=== PATIENT | female | born 1975 | race Caucasian/White ===

== ENCOUNTER 2020-02-17 08:12 | Outpatient (REF) | payer MEDICARE, MEDICAID, SELFPAY | END 2020-02-17 08:13 | disposition home or self-care (01) | LOC: HO.LAB 08:12 | PROVIDERS: Visit Provider Internal Medicine | DX: Z20.828 Contact with and (suspected) exposure to other viral communicable diseases (principal) | CPT/HCPCS: C9803; U0003 ==

== ENCOUNTER 2022-08-09 11:57 | Emergency (ER) | payer MEDICARE, MEDICAID, SELFPAY ==
--- NOTE | ~2022-08-09 | XR_ITS ---
EXAMINATION: XR CHEST CLINICAL INFORMATION: Shortness of breath COMPARISON: None available. TECHNIQUE: 2 views of the chest were obtained. FINDINGS: No significant abnormality is noted involving the heart, lungs, mediastinum, bony thorax or soft tissues. XR/XR chest 2V IMPRESSION: Unremarkable examination.
[2022-08-09 12:00] VITALS: BP 179/91; PULSE 103; RESP 20; TEMP 37; O2SAT 99; BMI 27.4
--- NOTE | 2022-08-09 12:01 | ED_ITS ---
HPI - General Adult General Chief complaint: Upper Respiratory Symptoms Stated complaint: SOB/Blocked ears/FO in R eye Time Seen by Provider: 08/09/22 13:39 History of Present Illness HPI narrative: Patient complains of runny nose and congestion as well as red eyes which are itching and discharge in watery fluid for several weeks, she is also concerned she might have a foreign body in the right eye, no other eye pain or vision loss She has no chest pain no shortness of breath no headache no sore throat no difficulty swallowing or breathing, no abdominal pain no nausea vomiting or diarrhea no dysuria Related Data Previous Rx's Medication Instructions Recorded cetirizine 10 mg tablet 10 mg PO DAILY PRN allergy 08/09/22 symptoms #30 tabs fluticasone propionate 50 2 spray intranasal DAILY #16 grams 08/09/22 mcg/actuation nasal spray,suspension (24 Hour Allergy Relief) olopatadine 0.7 % eye drops 1 drp ophthalmic (eye) DAILY PRN 08/09/22 (Pataday Once Daily Relief) itching #5 mL prednisone 20 mg tablet 60 mg PO DAILY 5 days #15 tabs 08/09/22 Allergies Allergy/AdvReac Type Severity Reaction Status Date / Time No Known Allergies Allergy Unverified 11/27/19 18:57 [No Known Allergies*] FORMERLY [facility], [facility] Past Medical History Source: nursing notes reviewed Social History Social History Advance Directives: No Advance Directives Information Provided: No Physical Exam ED Vital Signs: Vital Signs - 24 hr 08/09/22 12:00 Temperature 98.6 F Pulse Rate 103 H Respiratory Rate 20 Blood Pressure 179/91 H Pulse Oximetry 99 Oxygen Delivery Method Room Air BMI result Body Mass Index 27.4 General appearance no acute distress no respiratory distress The eyes both eyes have mildly injected conjunctiva there is no obvious discharge, pupils equal round reactive to light extraocular motions are intact Staining of the right eye with fluorescein did not show any abrasion, no foreign body was seen, visual acuity was 20 30 bilaterally Sinuses were nontender The pharynx is clear without redness swelling or exudate The lungs are clear with full symmetric equal breath sounds Heart no murmur Extremities for range of motion x4 Skin no rash Course Course Course Narrative: This is an RME: Additional HPI, ROS, PE not included below will be deferred to primary provider. 47 y/o F presenting with bilateral ear blockage, cough, congestion, shortness of breath and ?foreign body in right eye. She states that she found a body in an apartment complex 1 month ago concerned she picked something up. VSS. Pt stable to return back to waiting room until treatment room becomes available. Plan: Viral swabs, CXR ordered No evidence of foreign body or abrasion on staining of the right eye, red eyes with watery discharge is likely to be an allergic conjunctivitis, nasal symptoms are likely allergic, no sign of acute sinusitis or asthma and patient is discharged with medication for allergy Medications Administered Discontinued Medications Generic Name Dose Route Start Last Admin Trade Name Freq PRN Reason Stop Dose Admin Fluorescein Sodium 1 strip 08/09/22 13:59 08/09/22 14:17 Fluorescein Sodium Strip EYE-BOTH 08/09/22 14:00 1 strip ONCE ONE Administration Tetracaine HCl 3 drop 08/09/22 13:59 08/09/22 14:17 Tetracaine Hcl/Pf 0.5% Oph Michelle 4 Ml Drops EYE-RIGHT 08/09/22 14:00 3 drop ONCE ONE Administration Medical Decision Making Lab Data Labs: Lab Results 08/09/22 Range/Units 12:12 Influenza Type A (PCR) NEGATIVE (Negative) Influenza Type B (PCR) NEGATIVE (Negative) RSV RNA Qual (PCR) NEGATIVE (Negative) SARS-CoV-2 RNA (RT-PCR) NEGATIVE (Negative) Discharge Plan Discharge Clinical Impression: Allergies Patient Disposition: Home, Self-Care Additional Instructions: I did not see any foreign body in the eye This is likely all irritation from allergy but to be sure it is a good idea to follow with an eye doctor who can do a magnified exam and be sure there is nothing else going on I wrote for medications for allergies including nose spray pills and eyedrops Follow with your doctor Return any time any worse condition or concerns Prescriptions: New Pataday Once Daily Relief 0.7 % drops 1 drp ophthalmic (eye) DAILY PRN (Reason: itching) Qty: 5 0RF cetirizine 10 mg tablet 10 mg PO DAILY PRN (Reason: allergy symptoms) Qty: 30 0RF prednisone 20 mg tablet 60 mg PO DAILY 5 Days Qty: 15 0RF fluticasone propionate [24 Hour Allergy Relief] 50 mcg/actuation spray,suspension 2 spray intranasal DAILY Qty: 16 0RF Rx Instructions: administer into each nostril Referrals: Teofilo Bermudez [Physician] - Interventions: ED Discharge Assessment Last Done: 08/09/22 14:45 Discharge Date/Time: 08/09/22 14:45
[2022-08-09 13:03] LABS: Influenza A PCR NEGATIVE (Negative); Influenza B PCR NEGATIVE (Negative); Resp Syncy Virus RNA Qual PCR NEGATIVE (Negative); SARS COV2 PCR INHOUSE NEGATIVE (Negative)
[2022-08-09] MEDS: Fluorescein Sodium STRIP 1 STRIP EYE-BOTH (14:17)
[2022-08-09] MEDS: Tetracaine HCl/PF 0.5% Oph Sol 4 ML DROPS 3 DROP EYE-RIGHT (14:17)
== END 2022-08-09 14:45 | disposition home or self-care (01) ==
PROVIDERS: Physician Assistant Medical; Emergency Provider Emergency Medicine
DX: T78.40XA Allergy, unspecified, initial encounter (principal); R06.02 Shortness of breath; X58.XXXA Exposure to other specified factors, initial encounter; Z20.822 Contact with and (suspected) exposure to COVID-19; Z20.828 Contact with and (suspected) exposure to other viral communicable diseases
CPT/HCPCS: 0241U; 71046; 99282; 99283

== ENCOUNTER 2022-08-25 11:50 | Emergency (ER) | payer MEDICARE, MEDICAID, SELFPAY ==
[2022-08-25 12:16] VITALS: BP 143/117; PULSE 106; RESP 20; TEMP 36.6; O2SAT 97; BMI 26.6
--- NOTE | 2022-08-25 12:16 | ED_ITS ---
HPI - URI/Sore Throat General Chief Complaint: General Medical Stated Complaint: coughing blood, swollen ankles, headache Time Seen by Provider: 08/25/22 12:25 Source: patient Mode of arrival: ambulatory Limitations: no limitations History of Present Illness HPI Narrative: Patient is a 47 year old assigned female at with no reported medical history presenting to the emergency department today with after an episode of bloody vomiting and concerns of having a parasitic infection. Patient states that she has been having nausea, vomiting, and congestion the last few months and today she vomited and noticed it was blood tinged. Patient states that there has also been recent concern of parasites living in her apartment after a close by apartment that was infested was emptied out. Patient denies any dizziness, lightheadedness, abdominal pain, fever, chills, blurry vision, double vision, loss of vision, chest pain, difficulty breathing, shortness of breath, back pain, night sweats, pain with urination, increased urinary frequency, increased urinary urgency, blood in her urine or stool, syncope or a near syncopal episode, recent trauma or falls, bowel incontinence, bladder incontinence, bowel retention, bladder retention, or any other complaints at this time. Able to tolerate fluids by mouth: Yes Exacerbating factors: nothing Relieving factors: nothing Associated symptoms: nasal congestion, nausea and vomiting Treatments prior to arrival: none Related Data Previous Rx's Medication Instructions Recorded cetirizine 10 mg tablet 10 mg PO DAILY PRN allergy 08/09/22 symptoms #30 tabs fluticasone propionate 50 2 spray intranasal DAILY #16 grams 08/09/22 mcg/actuation nasal spray,suspension (24 Hour Allergy Relief) olopatadine 0.7 % eye drops 1 drp ophthalmic (eye) DAILY PRN 08/09/22 (Pataday Once Daily Relief) itching #5 mL prednisone 20 mg tablet 60 mg PO DAILY 5 days #15 tabs 08/09/22 doxycycline hyclate 100 mg tablet 100 mg PO BID 7 days #14 tabs 08/25/22 ondansetron 4 mg disintegrating 4 mg PO Q8H 3 days #9 tabs 08/25/22 tablet praziquantel 600 mg tablet 1,800 mg PO ONCE 1 day #3 tabs 08/25/22 Allergies Allergy/AdvReac Type Severity Reaction Status Date / Time No Known Allergies Allergy Unverified 11/27/19 18:57 [No Known Allergies*] Review of Systems Constitutional: Constitutional: Reports no additional constitutional compl aints, Denies chills, Denies fever(s) and Denies night sweats Eyes: Eyes: Reports no additional eye complaints, Denies blurry vision, Denies change in vision, Denies diplopia, Denies eye discharge, Denies loss of vision and Denies eye pain ENT: Denies dizziness and Reports nasal congestion Cardiovascular: Cardiovascular: Reports no additional cardiovascular co mplaints, Denies chest pain, Denies lightheadedness, Denies Loss of Consciousness and Denies dyspnea Respiratory: Respiratory: Reports no additional respiratory complaints and Denies dyspnea Gastrointestinal: Gastrointestinal: Reports no additional gastrointestinal complaints, Denies abdominal pain, Denies melena, Denies hematochezia, Denies change in bowel habits, Denies change in stool character, Reports nausea and Reports vomiting Genitourinary: Genitourinary: Denies hematuria, Denies urinary frequency, Denies dysuria, Denies urinary incontinence, Denies urinary hesitancy and Denies urinary urgency Musculoskeletal: Musculoskeletal: Reports no additional musculoskeletal com plaints, Denies numbness and Denies tingling Neurologic: Denies dizziness, Denies loss of vision, Denies numbness and Denies tingling Psychiatric: Psychiatric: Reports no additional psychiatric complaints Endocrine: Endocrine: Reports no additional endocrine complaints Hematologic/Lymphatic: Hematologic/Lymphatic: Reports no additional hematologic/lymphatic complaints Allergic/Immunologic: Allergic/Immunologic: Reports no additional allergic/immunologic complaints PMFSH Past Medical History Attestation statement: The following information was validated with the patient. Source: old records reviewed and nursing notes reviewed Social History Social History Advance Directives: No Advance Directives Information Provided: No Physical Exam Vital Signs: Vital Signs: Last Vital Signs Temp 97.8 F 08/25/22 12:16 Pulse 106 H 08/25/22 12:16 Resp 20 08/25/22 12:16 BP 143/117 H 08/25/22 12:16 Pulse Ox 97 08/25/22 12:16 O2 Del Method Room Air 08/25/22 12:16 BMI result Body Mass Index 26.6 Const: General: cooperative, no acute distress, alert and awake Nutritional Appearance: well nourished Orientation/consciousness: patient oriented x3 Limitations: no limitations HEENT: Head: Yes normal to inspection and Yes atraumatic Ears: hearing grossly normal bilaterally and external ears normal General nose exam: Normal external nose present, no nasal discharge noted and no epistaxis Face and sinus: Yes normal facial exam, No abrasion and No laceration Mouth: Normal oral and palatal mucosa present, no drooling and no muffled voice Eyes: General: appearance normal, both eyes and all related structures Periorbital: periorbital findings normal Eyelids: Yes eyelids normal Conjunctivae: conjunctivae normal Pupils: Equal, round and reactive pupils present EOM: EOMs intact bilaterally Neck: Neck: Yes normal visual inspection, Yes full ROM and Yes no lymphadenopathy Chest: Chest palpation & inspection: normal inspection of the chest Resp: Effort & Inspection: normal respiratory effort and able to speak in complete sentences Auscultation: clear to auscultation bilaterally Cardio: Rate: regular rate Rhythm: regular rhythm GI: Inspection: Yes normal to inspection Palpation (GI): Soft to palpation, not firm, nontender, no guarding and not rigid Neuro: General: patient oriented x3 and moves all extremities Cranial nerves: Yes Equal, round and reactive pupils present Cognition (Neuro): normal cognition Motor exam (neuro): 5/5 motor strength present throughout Sensory Exam: Normal double simultaneous stimulation for sensation Coordination: [id number] test normal Extrem: General: Yes normal to inspection, Yes full ROM and Yes capillary refill normal Psych: Appearance: grossly normal Mental Status: mental status grossly normal Affect: normal affect Attitude: cooperative Thought process: Normal thought process present Thought content: Normal thought content present Insight: Good insight present (Psych) Course Course Course Narrative: This is a rapid medical exam. Deferred additional HPI, ROS, PE to primary provider. 47 yo female with no known medical history here with bilateral ankle swelling/burning sensation, coughing up blood, headache, joint pain, shortness of breath x 1 month. Is concerned she has a parasitic infection as her neighbors place of living is infected with cockroaches. Has not seen her PCP. Seen here 2 weeks ago and had CXR. Will check labs VSS Medical Decision Making Medical Decision Making MDM Narrative: Patient is a 47 year old assigned female at with no reported medical history presenting to the emergency department today with multiple complaints as documented in the HPI. Patient's physical exam was unremarkable. Patient's blood work was unremarkable. I explained my physical exam findings as well as all test results to the patient. I answered all questions asked by the patient. I stressed the importance of the patient taking her medication as prescribed. I stressed the importance of the patient following up with her primary care pr ovider. I stressed the importance of the patient returning to the emergency department immediately if her symptoms were to worsen or if she were to develop any dizziness, shortness of breath, difficulty breathing, chest pain, blurry vision, loss of vision, nausea, vomiting, abdominal pain, fever, chills, back pain, or any other complaints. Patient verbalized agreement and understanding with this treatment plan and discharge. Differential Diagnosis Differential Diagnoses: The differential diagnosis associated with the presentation includes sinusitis, nausea, vomiting, parasite Admission/Observation Consideration of admission/observation: Escalation of care including admission/observation considered Patient would have been admitted to the hospital had her work up had any findings where hospital admission was appropriate. Lab Data MDM Lab Attestation statement: I reviewed the patient's lab results. My interpretation of these studies and their corresponding values is that they are grossly normal. 08/25/22 12:55 08/25/22 12:55 Labs: Lab Results 08/25/22 08/25/22 08/25/22 Range/Units 12:55 12:55 12:55 WBC 10.2 (4.8-10.8) X10*3/uL RBC 4.99 (4.20-5.50) X10*6/uL Hgb 15.4 (12.0-16.0) g/dl Hct 44.8 (37.0-47.0) % MCV 89.8 (80.0-98.0) fL MCH 30.9 (27.0-33.0) pg MCHC 34.4 (31.0-35.0) g/dl RDW 13.2 (11.0-16.0) % Plt Count 226 (160-400) X10*3/uL MPV 9.4 (9.4-12.3) fL Immature Gran % (Auto) 0.3 (0.0-0.4) % Neut % (Auto) 69.2 (45-73) % Lymph % (Auto) 20.0 (20-40) % [place] % (Auto) 9.5 (2-11) % Eos % (Auto) 0.6 (0-4) % Baso % (Auto) 0.4 (0-2) % Lymph # (Auto) 2.1 (1.2-4.9) X10*3/uL [place] # (Auto) 1.0 (0.1-1.2) X10*3/uL Eos # (Auto) 0.1 (0.0-0.4) X10*3/uL Baso # (Auto) 0.0 (0.0-0.2) X10*3/uL Abs Immat Gran (auto) 0.03 (0.00-0.03) X10*3/uL Absolute Neuts (auto) 7.1 (2.0-8.3) x10*3/uL Absolute Nucleated RBC 0.000 (0.0-0.012) X10*3/uL Nucleated RBC % (auto) 0.0 (0.0-0.2) /100WBC PT 11.0 (10.0-13.1) SEC INR 1.0 (0.9-1.1) Sodium 139 (135-145) mmol/L Potassium 3.8 (3.3-5.1) mmol/L Chloride 104 (96-108) mmol/L Carbon Dioxide 27 (22-29) mmol/L Anion Gap 12 (12-20) BUN 9 (9-16) mg/dL Creatinine 0.73 (0.5-1.4) mg/dL Estim Creat Clear Calc 107.6 Estimated GFR > 60 Random Glucose 125 H (60-115) mg/dL Calcium 10.2 (8.4-10.2) mg/dL Magnesium 2.0 (1.6-2.6) mg/dL Total Bilirubin 0.5 (0.0-1.0) mg/dL Direct Bilirubin 0.1 (0.0-0.5) mg/dL AST 30 (5-31) U/L ALT 27 (0-31) U/L Alkaline Phosphatase 70 (39-117) U/L Total Creatine Kinase 181 H (26-140) U/L B-Natriuretic Peptide (<100) pg/mL Total Protein 7.4 (6.5-8.0) g/dL Albumin 4.1 (3.5-5.0) g/dL 08/25/22 Range/Units 12:55 WBC (4.8-10.8) X10*3/uL RBC (4.20-5.50) X10*6/uL Hgb (12.0-16.0) g/dl Hct (37.0-47.0) % MCV (80.0-98.0) fL MCH (27.0-33.0) pg MCHC (31.0-35.0) g/dl RDW (11.0-16.0) % Plt Count (160-400) X10*3/uL MPV (9.4-12.3) fL Immature Gran % (Auto) (0.0-0.4) % Neut % (Auto) (45-73) % Lymph % (Auto) (20-40) % [place] % (Auto) (2-11) % Eos % (Auto) (0-4) % Baso % (Auto) (0-2) % Lymph # (Auto) (1.2-4.9) X10*3/uL [place] # (Auto) (0.1-1.2) X10*3/uL Eos # (Auto) (0.0-0.4) X10*3/uL Baso # (Auto) (0.0-0.2) X10*3/uL Abs Immat Gran (auto) (0.00-0.03) X10*3/uL Absolute Neuts (auto) (2.0-8.3) x10*3/uL Absolute Nucleated RBC (0.0-0.012) X10*3/uL Nucleated RBC % (auto) (0.0-0.2) /100WBC PT (10.0-13.1) SEC INR (0.9-1.1) Sodium (135-145) mmol/L Potassium (3.3-5.1) mmol/L Chloride (96-108) mmol/L Carbon Dioxide (22-29) mmol/L Anion Gap (12-20) BUN (9-16) mg/dL Creatinine (0.5-1.4) mg/dL Estim Creat Clear Calc Estimated GFR Random Glucose (60-115) mg/dL Calcium (8.4-10.2) mg/dL Magnesium (1.6-2.6) mg/dL Total Bilirubin (0.0-1.0) mg/dL Direct Bilirubin (0.0-0.5) mg/dL AST (5-31) U/L ALT (0-31) U/L Alkaline Phosphatase (39-117) U/L Total Creatine Kinase (26-140) U/L B-Natriuretic Peptide < 10 (<100) pg/mL Total Protein (6.5-8.0) g/dL Albumin (3.5-5.0) g/dL Discharge Plan Discharge Clinical Impression: Sinusitis, Nausea & vomiting, Parasite infection Patient Disposition: Home, Self-Care Instructions: Sinusitis (ED), Acute Nausea and Vomiting (ED) Additional Instructions: Follow up with your primary care provider. Return to the emergency department immediately if your symptoms worsen or if you develop any dizziness, shortness of breath, difficulty breathing, chest pain, blurry vision, loss of vision, nausea, vomiting, abdominal pain, fever, chills, back pain, or any other complaints. Prescriptions: New ondansetron 4 mg tablet,disintegrating 4 mg PO Q8H 3 Days Qty: 9 0RF doxycycline hyclate 100 mg tablet 100 mg PO BID 7 Days Qty: 14 0RF praziquantel 600 mg tablet 1,800 mg PO ONCE 1 Days Qty: 3 0RF No Action Pataday Once Daily Relief 0.7 % drops 1 drp ophthalmic (eye) DAILY PRN (Reason: itching) Qty: 5 0RF cetirizine 10 mg tablet 10 mg PO DAILY PRN (Reason: allergy symptoms) Qty: 30 0RF prednisone 20 mg tablet 60 mg PO DAILY 5 Days Qty: 15 0RF fluticasone propionate [24 Hour Allergy Relief] 50 mcg/actuation spray,suspension 2 spray intranasal DAILY Qty: 16 0RF Rx Instructions: administer into each nostril Ref[place]: [facility] [place]] (Call to establish and follow up with a primary care provider. If you already have a primary care provider, please follow up with them.) [facility] [Provider Group] (Call to establish and follow up with a primary care provider. If you already have a primary care provider, please follow up with them.) [facility] Group] (Call to establish and follow up with a primary care provider. If you already have a primary care provider, please follow up with them.) Interventions: ED Discharge Assessment Last Done: 08/25/22 14:08 Discharge Date/Time: 08/25/22 14:10 Print Language: Croatian
[2022-08-25 13:01] LABS: MANUAL DIFF FLAG NO
[2022-08-25 13:05] LABS: Basophils Percent Auto 0.4 % (0-2); Eosinophils Absolute Auto 0.1 X10*3/uL (0.0-0.4); Eosinophils Percent Auto 0.6 % (0-4); Hematocrit 44.8 % (37.0-47.0); Hemoglobin 15.4 g/dl (12.0-16.0); Imm Gran Abs Auto 0.03 X10*3/uL (0.00-0.03); Imm Gran Pct Auto 0.3 % (0.0-0.4); Lymphocytes Absolute Auto 2.1 X10*3/uL (1.2-4.9); Mean Corpuscular HGB Conc 34.4 g/dl (31.0-35.0); Mean Corpuscular Hemoglobin 30.9 pg (27.0-33.0); Mean Corpuscular Volume 89.8 fL (80.0-98.0); Mean Platelet Volume 9.4 fL (9.4-12.3); Monocytes Percent Auto 9.5 % (2-11); Neutrophils Absolute Auto 7.1 x10*3/uL (2.0-8.3); Neutrophils Percent Auto 69.2 % (45-73); Platelet Count 226 X10*3/uL (160-400); Red Blood Count 4.99 X10*6/uL (4.20-5.50); Red Cell Distribution Width 13.2 % (11.0-16.0); White Blood Count 10.2 X10*3/uL (4.8-10.8)
[2022-08-25 13:28] LABS: B Type Natriuretic Peptide < 10 pg/mL (<100)
[2022-08-25 13:29] LABS: Alanine Aminotransferase 27 U/L (0-31); Albumin Level 4.1 g/dL (3.5-5.0); Alkaline Phosphatase 70 U/L (39-117); Anion Gap 12 (12-20); Aspartate Amino Transferase 30 U/L (5-31); Bilirubin Direct 0.1 mg/dL (0.0-0.5); Bilirubin Total 0.5 mg/dL (0.0-1.0); Blood Urea Nitrogen 9 mg/dL (9-16); Calcium 10.2 mg/dL (8.4-10.2); Carbon Dioxide 27 mmol/L (22-29); Chloride 104 mmol/L (96-108); Creatinine Clr Calc Pharmacy 107.6; Estimated Glomerular Filt Rate > 60; Glucose Random 125 mg/dL (60-115); Potassium 3.8 mmol/L (3.3-5.1); Sodium 139 mmol/L (135-145); Total Protein 7.4 g/dL (6.5-8.0)
== END 2022-08-25 14:10 | disposition home or self-care (01) ==
PROVIDERS: Nurse Practitioner Family; Emergency Provider Emergency Medicine
DX: J32.9 Chronic sinusitis, unspecified (principal); B89 Unspecified parasitic disease; R11.2 Nausea with vomiting, unspecified; R04.2 Hemoptysis; R51.9 Headache, unspecified; R06.02 Shortness of breath; Z79.899 Other long term (current) drug therapy
CPT/HCPCS: 36415; 80048; 80076; 82550; 83735; 83880; 85025; 85610; 99283

== ENCOUNTER 2022-11-01 20:28 | Emergency (ER) | payer MEDICARE, MEDICAID, SELFPAY ==
[2022-11-01 20:39] VITALS: BP 144/101; PULSE 94; RESP 18; TEMP 36.7; O2SAT 99; BMI 27.4
--- NOTE | 2022-11-01 20:43 | PC.NURSE ---
Pt reports being bit by something two nights in a row and having an allergic reaction. Dr Del Rio at bedside.
--- NOTE | 2022-11-01 20:44 | ED.GENADULT ---
HPI - General Adult General Chief complaint: Allergic Reaction Stated complaint: ? allergic reaction Time Seen by Provider: 11/01/22 20:38 Source: patient Mode of arrival: ambulatory Limitations: no limitations History of Present Illness HPI narrative: Patient comes to the emergency room complaining of an insect bite. Patient states that got bitten by something in her scalp and then inside of her nose. Today, patient noticed ?worms coming out of her scalp and her nose. Patient states that she has been scratching her scalp because she feels something moving in her scalp, has been using peroxide trying to remove the ?worms?. Patient also reported using peroxide in her nostrils to help the wounds, Related Data Previous Rx's Medication Instructions Recorded cetirizine 10 mg tablet 10 mg PO DAILY PRN allergy 08/09/22 symptoms #30 tabs fluticasone propionate 50 2 spray intranasal DAILY #16 grams 08/09/22 mcg/actuation nasal spray,suspension (24 Hour Allergy Relief) olopatadine 0.7 % eye drops 1 drp ophthalmic (eye) DAILY PRN 08/09/22 (Pataday Once Daily Relief) itching #5 mL prednisone 20 mg tablet 60 mg PO DAILY 5 days #15 tabs 08/09/22 doxycycline hyclate 100 mg tablet 100 mg PO BID 7 days #14 tabs 08/25/22 ondansetron 4 mg disintegrating 4 mg PO Q8H 3 days #9 tabs 08/25/22 tablet praziquantel 600 mg tablet 1,800 mg PO ONCE 1 day #3 tabs 08/25/22 Allergies Allergy/AdvReac Type Severity Reaction Status Date / Time No Known Allergies Allergy Unverified 11/27/19 18:57 [No Known Allergies*] Review of Systems Review of Systems: Constitutional : No Weight loss, No Fever, No Chills, No Night Sweats, No Fatigue, No Malaise ENT/Mouth : No Hearing loss, No Ear Pain, No Nasal Congestion, No Sinus Pain, No Hoarseness, No sore throat, No Rhinorrhea, No Swallowing Difficulty Eyes: No Eye Pain, No Swelling, No Redness, No Foreign Body, No Discharge, No Vision Changes Cardiovascular : No Chest Pain, No SOB, No Dyspnea on Exertion, No Orthopnea, No Edema, No Palpitations Respiratory : No Cough, No Sputum, No Wheezing, No Smoke Exposure, No Dyspnea Gastrointestinal : No Nausea, No Vomiting, No Diarrhea, No Constipation, No abdominal Pain, No Hematochezia, No Melena Genitourinary : no irregular bleeding, No Dysuria, No Urinary Frequency, No Hematuria, No Urinary Incontinence, No Urgency, No Flank Pain, No Urinary Flow Changes, No Hesitancy Musculoskeletal : No joint pain, No Myalgias, No Joint Swelling Skin : Patient complaining of warm like sensation in her scalp and her nostril Neuro : No Weakness, No Numbness, No Paresthesias, No Loss of Consciousness, No Dizziness, No Headache Psych : No Anxiety/Panic, No Depression, No SI/HI/AH/VH, No Social Issues, Heme/Lymph: No Bruising, No Bleeding,No Lymphadenopathy Endocrine : No Polyuria, No Polydipsia, No Temperature Intolerance Physical Exam ED Vital Signs: Vital Signs - 24 hr 11/01/22 20:39 Temperature 98.1 F Pulse Rate 94 Respiratory Rate 18 Blood Pressure 144/101 H Pulse Oximetry 99 Oxygen Delivery Method Room Air BMI result Body Mass Index 27.4 Const Other: Appearance: Alert. Oriented X3. No acute distress. Eyes: Pupils equal, round and reactive to light. ENT: Pharynx normal. Patient has rhinorrhea, seems congested Neck: Normal inspection. Neck supple. No lymph nodes noted. No crepitus CVS: Normal heart rate and rhythm. Pulses normal. Normal S1 and S2 Respiratory: No respiratory distress. Breath sounds normal. No Wheezing. No rales Abdomen: Soft and nontender. No rigidity. No distention. Skin: Skin warm and dry. Normal skin color. Skin in the scalp there is an abrasion secondary from scratching. Nostrils are normal Extremities: No lower extremity edema. No Lacerations. No Rash Neuro: Oriented X 3. No motor deficit. No sensory deficit. Moving all extremities. No slurred speech. CN 2 through 12 grossly intact Psych: calm, cooperative, normal affect Medical Decision Making Medical Decision Making MDM Narrative: -I discussed the physical exam with the patient, there were no visible insects/worms in her nostrils or her scalp Differential Diagnosis Differential Diagnoses: The differential diagnosis associated with the presentation includes (Allergic reaction, dermatitis, insect bite, delusion) Discharge Plan Discharge Clinical Impression: Excoriation of scalp Patient Disposition: Home, Self-Care Instructions: Abrasion (ED) Additional Instructions: Please follow-up with your primary care physician tomorrow. If you have any worsening or new symptoms, please return to the emergency room or call 911 Prescriptions: No Action ondansetron 4 mg tablet,disintegrating 4 mg PO Q8H 3 Days Qty: 9 0RF doxycycline hyclate 100 mg tablet 100 mg PO BID 7 Days Qty: 14 0RF praziquantel 600 mg tablet 1,800 mg PO ONCE 1 Days Qty: 3 0RF Pataday Once Daily Relief 0.7 % drops 1 drp ophthalmic (eye) DAILY PRN (Reason: itching) Qty: 5 0RF cetirizine 10 mg tablet 10 mg PO DAILY PRN (Reason: allergy symptoms) Qty: 30 0RF prednisone 20 mg tablet 60 mg PO DAILY 5 Days Qty: 15 0RF fluticasone propionate [24 Hour Allergy Relief] 50 mcg/actuation spray,suspension 2 spray intranasal DAILY Qty: 16 0RF Rx Instructions: administer into each nostril
[2022-11-01 21:02] VITALS: BP 124/81; PULSE 87; RESP 16; O2SAT 98
== END 2022-11-01 21:03 | disposition home or self-care (01) ==
LOC: HO.ED 20:56
PROVIDERS: Emergency Provider Emergency Medicine
DX: S00.01XA Abrasion of scalp, initial encounter (principal); X58.XXXA Exposure to other specified factors, initial encounter; Y93.9 Activity, unspecified; Y92.9 Unspecified place or not applicable; Y99.9 Unspecified external cause status
CPT/HCPCS: 99283; 99284

== ENCOUNTER 2022-12-11 14:32 | Emergency (ER) | payer MEDICARE, MEDICAID, SELFPAY ==
--- NOTE | 2022-12-11 15:18 | ED_ITS ---
HPI - General Adult General Chief complaint: General Medical Stated complaint: Hair issues Time Seen by Provider: 12/11/22 15:35 Source: patient Mode of arrival: ambulatory Limitations: no limitations History of Present Illness HPI narrative: Patient is a 47 year old assigned female at with a psychiatric history presenting to the emergency department today with scalp irritation and sinus congestion. Patient states that she has been having issues with her living situation for weeks. Patient states that over the last few days she has noticed increased scalp irritation with itching, drainage in some spots, and what appears to be bugs in her hair and on her scalp. Patient states that she has noticed some hair clumps on the floor of her apartment in different places. Patient states that she has also noticed her sinuses are congested much worse than previously. Patient denies any dizziness, lightheadedness, abdominal pain, nausea, vomiting, fever, chills, blurry vision, double vision, loss of vision, chest pain, difficulty breathing, shortness of breath, back pain, night sweats, pain with urination, increased urinary frequency, increased urinary urgency, blood in her urine or stool, syncope or a near syncopal episode, recent trauma or falls, bowel incontinence, bladder incontinence, bowel retention, bladder retention, or any other complaints at this time. Onset (ago): day(s) Location: head Severity: mild Relieving factors: none Exacerbating factors: none Associated symptoms: denies other symptoms Treatments prior to arrival: none Related Data Previous Rx's Medication Instructions Recorded cetirizine 10 mg tablet 10 mg PO DAILY PRN allergy 08/09/22 symptoms #30 tabs fluticasone propionate 50 2 spray intranasal DAILY #16 grams 08/09/22 mcg/actuation nasal spray,suspension (24 Hour Allergy Relief) olopatadine 0.7 % eye drops 1 drp ophthalmic (eye) DAILY PRN 08/09/22 (Pataday Once Daily Relief) itching #5 mL prednisone 20 mg tablet 60 mg (3 x 20 mg) PO DAILY 5 days 08/09/22 #15 tabs doxycycline hyclate 100 mg tablet 100 mg PO BID 7 days #14 tabs 08/25/22 ondansetron 4 mg disintegrating 4 mg PO Q8H 3 days #9 tabs 08/25/22 tablet praziquantel 600 mg tablet 1,800 mg (3 x 600 mg) PO ONCE 1 08/25/22 day #3 tabs doxycycline hyclate 100 mg tablet 100 mg PO BID 7 days #14 tabs 12/11/22 ketoconazole 2 % shampoo 1 appl topical 3XW #120 mL 12/11/22 permethrin 1 % topical liquid 30 ml topical ONCE #118 mL 12/11/22 (Lice Treatment (permethrin)) Allergies Allergy/AdvReac Type Severity Reaction Status Date / Time No Known Allergies Allergy Verified 12/11/22 15:19 [No Known Allergies*] Review of Systems Constitutional: Constitutional: Reports no additional constitutional complaints, Denies chills, Denies fever(s) and Denies night sweats Eyes: Eyes: Reports no additional eye complaints, Denies blurry vision, Denies change in vision, Denies diplopia, Denies eye discharge, Denies loss of vision and Denies eye pain ENT: Denies dizziness Cardiovascular: Cardiovascular: Reports no additional cardiovascular complaints, Denies chest pain, Denies lightheadedness, Denies Loss of Consciousness and Denies dyspnea Respiratory: Respiratory: Reports no additional respiratory complaints and Denies dyspnea Gastrointestinal: Gastrointestinal: Reports no additional gastrointestinal complaints, Denies abdominal pain, Denies melena, Denies hematochezia, Denies change in bowel habits and Denies change in stool character Genitourinary: Genitourinary: Denies hematuria, Denies urinary frequency, Denies dysuria, Denies urinary incontinence, Denies urinary hesitancy and Denies urinary urgency Musculoskeletal: Musculoskeletal: Reports no additional musculoskeletal complaints, Denies numbness and Denies tingling Integumentary/Breasts: Comments: scalp irritation and possible bug infestation Neurologic: Denies dizziness, Denies loss of vision, Denies numbness and Denies tingling Psychiatric: Psychiatric: Reports no additional psychiatric complaints Endocrine: Endocrine: Reports no additional endocrine complaints Hematologic/Lymphatic: Hematologic/Lymphatic: Reports no additional hematologic/lymphatic complaints Allergic/Immunologic: Allergic/Immunologic: Reports no additional allergic/immunologic complaints PMFSH Past Medical History Attestation statement: The following information was validated with the patient. Source: old records reviewed and nursing notes reviewed Social History Social History Advance Directives: No Advance Directives Information Provided: No Physical Exam ED Vital Signs: Vital Signs - 24 hr 12/11/22 15:19 Temperature 97.2 F Pulse Rate 104 H Respiratory Rate 20 Blood Pressure 152/95 H Pulse Oximetry 98 Oxygen Delivery Method Room Air BMI result Body Mass Index 23.7 Const General: cooperative, no acute distress, alert and awake Nutritional Appearance: well nourished Orientation/consciousness: patient oriented x3 Limitations: no limitations HENMT Other: multiple areas of dry skin with some yellowish discharge scattered throughout the scalp Ears: hearing grossly normal bilaterally and external ears normal General nose exam: Normal external nose present, no nasal discharge noted and no epistaxis Face and sinus: Yes normal facial exam, No abrasion and No laceration Mouth: Normal oral and palatal mucosa present, no drooling and no muffled voice Eyes General: appearance normal, both eyes and all related structures Periorbital: periorbital findings normal Eyelids: Yes eyelids normal Conjunctivae: conjunctivae normal Pupils: Equal, round and reactive pupils present EOM: EOMs intact bilaterally Neck Neck: Yes normal visual inspection, Yes full ROM and Yes no lymphadenopathy Chest Chest palpation & inspection: normal inspection of the chest Resp Effort & Inspection: normal respiratory effort and able to speak in complete sentences GI Inspection: Yes normal to inspection Neuro General: patient oriented x3 and moves all extremities Cranial nerves: Yes Equal, round and reactive pupils present Cognition (Neuro): normal cognition Motor exam (neuro): 5/5 motor strength present throughout Sensory Exam: Normal double simultaneous stimulation for sensation Coordination: [id number] test normal Extrem General: Yes normal to inspection, Yes full ROM and Yes capillary refill normal Psych Appearance: grossly normal Mental Status: mental status grossly normal Affect: normal affect Attitude: cooperative Thought process: Normal thought process present Thought content: Normal thought content present Insight: Good insight present (Psych) Course Course Course Narrative: This is an RME: Additional HPI, ROS, PE not included below will be deferred to primary provider. This is a [id number], with a , presenting to the emergency department with a complaint of concerns for a parasitic infection. She states that she was bit by an insect 1 month ago and was seen at the ER and was told that 'everything was fine . She is concerned that she has horsehair worms. Plan: Further Er evaluation needed. Medications Administered Discontinued Medications Generic Name Dose Route Start Last Admin Trade Name Freq PRN Reason Stop Dose Admin Acetaminophen 650 mg 12/11/22 15:43 12/11/22 15:57 Acetaminophen 325 Mg Tablet PO 12/11/22 15:44 650 mg ONCE ONE Administration Medical Decision Making Medical Decision Making [facility] Narrative: Patient is a 47 year old assigned female at with a psychiatric history presenting to the emergency department today with scalp irritation, nasal congestion, and concern for bug infestation. Patient's physical exam was as noted in the physical exam portion of this note. I explained my physical exam findings to the patient. I answered all questions asked by the patient. Patient received PO Tylenol for a headache she developed while waiting to be seen, which she stated helped her pain significantly. Patient's presentation is most consistent with seborrheic dermatitis however, the patient provided multiple pictures on her phone of what appears to be bug carcasses she claims came from her scalp / hair. Given this evidence and the patient's clinical presentation, patient will be covered for lice as well as seborrheic dermatitis. Patient also has chronic sinus congestion for which she will be treated for sinusitis. Patient also requested I write in my documentation that her home is uninhabitable. If the reports given by the patient are true, I am in agreement that her current residence is not fit for human habitation. I considered this being of psychiatric origin however, the patient has documentation from her psychiatrist who claims this is a real manifestations of symptoms and not a psychiatric complaint. I stressed the importance of the patient taking her medication as prescribed. I stressed the importance of the patient following up with her primary care provider, her psychiatrist, and a community association manager. I stressed the importance of the patient returning to the emergency department immediately if her symptoms were to worsen or if she were to develop any dizziness, shortness of breath, difficulty breathing, chest pain, blurry vision, loss of vision, nausea, vomiting, abdominal pain, fever, chills, back pain, or any other complaints. Patient verbalized agreement and understanding with this treatment plan and discharge. Differential Diagnosis Differential Diagnoses: The differential diagnosis associated with the presentation includes Seborrheic dermatitis Scalp irritation Lice Psychiatric manifestations of infestations / symptoms Prescription Management I considered prescription management with: Antibiotic (patient prescribed an antibiotic for her sinusitis) and Other (patient prescribed multiple medications for her scalp irritation / possible lice) Discharge Plan Discharge Clinical Impression: Scalp irritation, Sinusitis Patient Disposition: Home, Self-Care Instructions: Seborrheic Dermatitis (DC) Additional Instructions: You are being treated for both seborrheic dermatitis and a possible lice infestation. Follow up with your primary care provider and a community association manager. Return to the emergency department immediately if your symptoms worsen or if you develop any dizziness, shortness of breath, difficulty breathing, chest pain, blurry vision, loss of vision, nausea, vomiting, abdominal pain, fever, chills, back pain, or any other complaints. Prescriptions: New ketoconazole 2 % shampoo 1 appl topical 3XW Qty: 120 0RF Lice Treatment (permethrin) 1 % liquid 30 ml topical ONCE Qty: 118 0RF Rx Instructions: Apply to clean and damp hair, rinse after 10 minutes. Repeat in 9 days. doxycycline hyclate 100 mg tablet 100 mg PO BID 7 Days Qty: 14 0RF No Action ondansetron 4 mg tablet,disintegrating 4 mg PO Q8H 3 Days Qty: 9 0RF doxycycline hyclate 100 mg tablet 100 mg PO BID 7 Days Qty: 14 0RF praziquantel 600 mg tablet 1,800 mg PO ONCE 1 Days Qty: 3 0RF Pataday Once Daily Relief 0.7 % drops 1 drp ophthalmic (eye) DAILY PRN (Reason: itching) Qty: 5 0RF cetirizine 10 mg tablet 10 mg PO DAILY PRN (Reason: allergy symptoms) Qty: 30 0RF prednisone 20 mg tablet 60 mg PO DAILY 5 Days Qty: 15 0RF fluticasone propionate [24 Hour Allergy Relief] 50 mcg/actuation spray,suspension 2 spray intranasal DAILY Qty: 16 0RF Rx Instructions: administer into each nostril Referrals: [facility] [Provider Group] (Call to establish and follow up with a community association manager.) [facility] [place] [facility] [[place] Group] (Call to establish and follow up with a primary care provider. If you already have a primary care provider, please follow up with them.) [facility] [place] [facility] [Provider Group] (Call to establish and follow up with a primary care provider. If you already have a primary care provider, please follow up with them.) [facility] [place] [facility] [Provider Group] (Call to establish and follow up with a primary care provider. If you already have a primary care provider, please follow up with them.) Stand Alone Forms: Work/School Release Interventions: ED Discharge Assessment Last Done: 12/11/22 16:03 Print Language: Finnish
[2022-12-11 15:19] VITALS: BP 152/95; PULSE 104; RESP 20; TEMP 36.2; O2SAT 98; BMI 23.7
[2022-12-11] MEDS: Acetaminophen 325 MG TABLET 650 MG PO (15:57)
== END 2022-12-11 16:04 | disposition home or self-care (01) ==
LOC: HO.ED 15:54
PROVIDERS: Emergency Provider Emergency Medicine
DX: L29.9 Pruritus, unspecified (principal); J32.9 Chronic sinusitis, unspecified; Z79.899 Other long term (current) drug therapy
CPT/HCPCS: 99283

== ENCOUNTER 2022-12-29 22:52 | Emergency (ER) | payer MEDICARE, MEDICAID, SELFPAY ==
[2022-12-29 23:46] VITALS: BP 160/89; PULSE 100; RESP 24; TEMP 36.6; O2SAT 98; BMI 22.6
[2022-12-30 00:46] VITALS: BP 148/91; PULSE 84; RESP 17; TEMP 36.6; O2SAT 100
--- NOTE | 2022-12-30 01:22 | ED.GENADULT ---
HPI - General Adult General Chief complaint: Skin/Abscess/Foreign Body Stated complaint: allergic Rx Time Seen by Provider: 12/30/22 01:07 Source: patient, RN notes reviewed and old records reviewed Mode of arrival: ambulatory Limitations: no limitations History of Present Illness HPI narrative: 47-year-old female presents for evaluation of I need a dose of ivermectin and permethrin. Patient reports that she has been diagnosed with ?parasites. She believes she got them due to an infestation at her apartment Patient states that she went to [facility] 12/17/2022 and was diagnosed with parasites and referred to Infectious Disease who she has not yet seen Patient states that in the meantime her PCP gave her a prescription for ivermectin and permethrin She has discharge work from her PCP office confirming this However, the patient states that her insurance would not fill the medications She believes that she has ?larva under my scalp in the back of my head. ? She also believes she has worms coming out of her nose Related Data Previous Rx's Medication Instructions Recorded cetirizine 10 mg tablet 10 mg PO DAILY PRN allergy 08/09/22 symptoms #30 tabs fluticasone propionate 50 2 spray intranasal DAILY #16 grams 08/09/22 mcg/actuation nasal spray,suspension (24 Hour Allergy Relief) olopatadine 0.7 % eye drops 1 drp ophthalmic (eye) DAILY PRN 08/09/22 (Pataday Once Daily Relief) itching #5 mL prednisone 20 mg tablet 60 mg (3 x 20 mg) PO DAILY 5 days 08/09/22 #15 tabs doxycycline hyclate 100 mg tablet 100 mg PO BID 7 days #14 tabs 08/25/22 ondansetron 4 mg disintegrating 4 mg PO Q8H 3 days #9 tabs 08/25/22 tablet praziquantel 600 mg tablet 1,800 mg (3 x 600 mg) PO ONCE 1 08/25/22 day #3 tabs doxycycline hyclate 100 mg tablet 100 mg PO BID 7 days #14 tabs 12/11/22 ketoconazole 2 % shampoo 1 appl topical 3XW #120 mL 12/11/22 permethrin 1 % topical liquid 30 ml topical ONCE #118 mL 12/11/22 (Lice Treatment (permethrin)) permethrin 5 % topical cream 1 appl topical Q14D 2 doses #60 12/30/22 grams Allergies Allergy/AdvReac Type Severity Reaction Status Date / Time No Known Allergies Allergy Verified 12/29/22 23:45 [No Known Allergies*] Review of Systems Constitutional: Constitutional: Denies chills and Denies fever(s) Eyes: Eyes: Denies blurry vision Cardiovascular: Cardiovascular: Denies chest pain and Denies dyspnea Respiratory: Respiratory: Denies cough and Denies dyspnea Gastrointestinal: Gastrointestinal: Denies abdominal pain, Denies nausea and Denies vomiting Musculoskeletal: Musculoskeletal: Denies back pain Integumentary/Breasts: Skin/Breast: Reports pruritus, Reports lesions and Reports rash PMFSH Social History Social History Advance Directives: No Advance Directives Information Provided: Yes Physical Exam ED Vital Signs: Vital Signs - 24 hr 12/29/22 23:46 12/30/22 00:46 Temperature 97.9 F 97.9 F Pulse Rate 100 84 Respiratory Rate 24 H 17 Blood Pressure 160/89 H 148/91 H Pulse Oximetry 98 100 Oxygen Delivery Method Room Air Room Air BMI result Body Mass Index 22.6 Const General: healthy appearing, comfortable, no acute distress, alert and awake Nutritional Appearance: well nourished Orientation/consciousness: patient oriented x3 HENMT Head: Yes normocephalic and Yes atraumatic Throat: Yes posterior oropharynx normal Eyes Eyelids: Yes eyelids normal Conjunctivae: conjunctivae normal Sclerae: sclerae normal Corneas: corneas normal Pupils: Equal, round and reactive pupils present EOM: EOMs intact bilaterally Neck Neck: Yes full ROM Resp Effort & Inspection: normal respiratory effort, able to speak in complete sentences and not labored Skin General skin exam: elasticity normal Neuro General: patient oriented x3 Cranial nerves: Yes Equal, round and reactive pupils present and Yes Bilaterally intact EOM present Cognition (Neuro): normal cognition Medical Decision Making Medical Decision Making MDM Narrative: I discussed the patient that I do not see any obvious worms, parasites or ovum. She has documentation that she was prescribed ivermectin, so I agreed to give her a 1 time dose and she will follow-up with her PCP/infectious disease. I did prescribe her permethrin to take at home. All questions were answered Differential Diagnosis Differential Diagnoses: The differential diagnosis associated with the presentation includes Parasite infection Dermatitis Cellulitis Psychosis Hallucinations Substance abuse Discharge Plan Discharge Clinical Impression: Insect bites Patient Disposition: Home, Self-Care Instructions: Ivermectin (By mouth) Additional Instructions: Your given 1 dose of ivermectin in the ER Use the permethrin as prescribed Follow-up with infectious disease as planned Prescriptions: New permethrin 5 % cream 1 appl topical Q14D Qty: 60 0RF Rx Instructions: apply second treatment 14 days after first treatment if live lice remain No Action ondansetron 4 mg tablet,disintegrating 4 mg PO Q8H 3 Days Qty: 9 0RF doxycycline hyclate 100 mg tablet 100 mg PO BID 7 Days Qty: 14 0RF praziquantel 600 mg tablet 1,800 mg PO ONCE 1 Days Qty: 3 0RF ketoconazole 2 % shampoo 1 appl topical 3XW Qty: 120 0RF Lice Treatment (permethrin) 1 % liquid 30 ml topical ONCE Qty: 118 0RF Rx Instructions: Apply to clean and damp hair, rinse after 10 minutes. Repeat in 9 days. doxycycline hyclate 100 mg tablet 100 mg PO BID 7 Days Qty: 14 0RF Pataday Once Daily Relief 0.7 % drops 1 drp ophthalmic (eye) DAILY PRN (Reason: itching) Qty: 5 0RF cetirizine 10 mg tablet 10 mg PO DAILY PRN (Reason: allergy symptoms) Qty: 30 0RF prednisone 20 mg tablet 60 mg PO DAILY 5 Days Qty: 15 0RF fluticasone propionate [24 Hour Allergy Relief] 50 mcg/actuation spray,suspension 2 spray intranasal DAILY Qty: 16 0RF Rx Instructions: administer into each nostril
== END 2022-12-30 02:19 | disposition home or self-care (01) ==
PROVIDERS: Emergency Provider Internal Medicine
DX: S00.06XA Insect bite (nonvenomous) of scalp, initial encounter (principal); S00.36XA Insect bite (nonvenomous) of nose, initial encounter; W57.XXXA Bitten or stung by nonvenomous insect and other nonvenomous arthropods, initial encounter; Y93.9 Activity, unspecified; Y92.039 Unspecified place in apartment as the place of occurrence of the external cause; Y99.9 Unspecified external cause status
CPT/HCPCS: 99283; 99284

== ENCOUNTER 2023-01-06 19:11 | Emergency (ER) | payer MEDICARE, MEDICAID, SELFPAY ==
[2023-01-06 19:20] VITALS: BP 140/76; BP 146/78; PULSE 72; PULSE 90; RESP 18; TEMP 36.4; O2SAT 100; O2SAT 98; BMI 23.0
--- NOTE | 2023-01-06 19:34 | ED.EYEPROB ---
HPI - Eye Problem General Chief complaint: Eye Problems Stated complaint: 12/19 stabbing R eye pain Time Seen by Provider: 01/06/23 19:34 Source: patient Mode of arrival: EMS Limitations: no limitations History of Present Illness HPI Narrative: Patient comes here for irritation the right eye which started just prior to arrival apparently patient entered her apartment felt something in her eye and started rubbing and now she has haziness from the right eye with increased watering and redness patient able to open her eye because of for sensitive patient does not use any contact lens Related Data Previous Rx's Medication Instructions Recorded cetirizine 10 mg tablet 10 mg PO DAILY PRN allergy 08/09/22 symptoms #30 tabs fluticasone propionate 50 2 spray intranasal DAILY #16 grams 08/09/22 mcg/actuation nasal spray,suspension (24 Hour Allergy Relief) olopatadine 0.7 % eye drops 1 drp ophthalmic (eye) DAILY PRN 08/09/22 (Pataday Once Daily Relief) itching #5 mL prednisone 20 mg tablet 60 mg (3 x 20 mg) PO DAILY 5 days 08/09/22 #15 tabs doxycycline hyclate 100 mg tablet 100 mg PO BID 7 days #14 tabs 08/25/22 ondansetron 4 mg disintegrating 4 mg PO Q8H 3 days #9 tabs 08/25/22 tablet praziquantel 600 mg tablet 1,800 mg (3 x 600 mg) PO ONCE 1 08/25/22 day #3 tabs doxycycline hyclate 100 mg tablet 100 mg PO BID 7 days #14 tabs 12/11/22 ketoconazole 2 % shampoo 1 appl topical 3XW #120 mL 12/11/22 permethrin 1 % topical liquid 30 ml topical ONCE #118 mL 12/11/22 (Lice Treatment (permethrin)) ivermectin 3 mg tablet 12 mg (4 x 3 mg) PO ONCE 1 dose #4 12/30/22 tabs permethrin 5 % topical cream 1 appl topical Q14D 2 doses #60 12/30/22 grams ketorolac 0.5 % eye drops (Acular) 1 drp ophthalmic (eye) QID 1 week 01/06/23 #5 mL tobramycin 0.3 % eye drops 2 drp ophthalmic-Left Q4H #5 mL 01/06/23 Allergies Allergy/AdvReac Type Severity Reaction Status Date / Time No Known Allergies Allergy Verified 12/29/22 23:45 [No Known Allergies*] Review of Systems Review of Systems: Yes all other systems are reviewed and are negative COUNT INCLUDES [facility] Social History Social History Smoked in Last 30 Days: Yes Use of substances other than those prescribed or required for medical reasons: No Advance Directives: No Advance Directives Information Provided: No Patient : No Physical Exam Vital Signs: Vital Signs: Last Vital Signs Temp 97.7 F 01/06/23 20:25 Pulse 80 01/06/23 20:25 Resp 14 01/06/23 20:25 BP 144/90 H 01/06/23 20:25 Pulse Ox 100 01/06/23 20:25 O2 Del Method Room Air 01/06/23 20:25 BMI result Body Mass Index 23.0 Appearance: Alert. Oriented X3. In moderate distress. Eyes: PERRLA, refused conjunctival in injection the right eye with photosensitivity Fluorescein uptake present anterior chamber normal no foreign body seen ENT: Pharynx normal. Oral Mucosa moist Neck: Normal inspection. Neck supple. CVS: Normal heart rate and rhythm. Pulses normal. Respiratory: No respiratory distress. Equal air entry bilateral, no wheezing/rales/rhonchi Abdomen: Soft and nontender. Skin: Skin warm and dry. Normal skin color. Normal skin turgor. Extremities: No lower extremity edema. No calf tenderness Neuro: Oriented X 3. Eyes: Conjunctivae: conjunctival abnormal (Inflamed) right Sclerae: sclerae normal Corneas: corneas abnormal and fluorescein used (Corneal abrasion right eye no foreign body seen) Pupils: Equal, round and reactive pupils present EOM: EOMs intact bilaterally Direct Ophthalmoscopy: normal light reflex and anterior chamber normal Eyes/upper lids images: 1. Coronal abrasion involving the lower half of the right cornea no foreign body seen Neuro: Cranial nerves: Yes Equal, round and reactive pupils present Medications Administered Discontinued Medications Generic Name Dose Route Start Last Admin Trade Name Freq PRN Reason Stop Dose Admin Acetaminophen 650 mg 01/06/23 20:25 01/06/23 20:29 Acetaminophen 325 Mg Tablet PO 01/06/23 20:26 650 mg ONCE ONE Administration Fluorescein Sodium 1 strip 01/06/23 20:11 01/06/23 20:18 Fluorescein Sodium Strip EYE-RIGHT 01/06/23 20:12 1 strip ONCE ONE Administration Tobramycin Sulfate 2 drop 01/06/23 20:25 01/06/23 20:29 Tobramycin Sulfate 0.3% Michelle Op 5 Ml Btl EYE-RIGHT 01/06/23 20:26 2 drop ONCE ONE Administration Medical Decision Making Medical Decision Making MDM Narrative: Patient id: Abrasion from rubbing her right eye likely had dust particles in her eye. No foreign body seen. Fluorescein was used showed significant corneal abrasion no signs of fungal dendritic infection. Discharge patient home on tobramycin and ketoprofen eyedrops advised for advertising sales representative Differential Diagnosis Differential Diagnoses: The differential diagnosis associated with the presentation includes Called abrasion/coronal foreign body/conjunctivitis Discharge Plan Discharge Clinical Impression: Corneal abrasion Patient Disposition: Home, Self-Care Instructions: Corneal Abrasion (ED) Additional Instructions: you have corneal abrasion on the right side Antibiotic eyedrops to prevent infection your right eye Eyedrops for pain as prescribed Tylenol/Motrin for pain Follow-up with eye doctor Prescriptions: New ketorolac [Acular] 0.5 % drops 1 drp ophthalmic (eye) QID 7 Days Qty: 5 0RF tobramycin 0.3 % drops 2 drp ophthalmic-Left Q4H Qty: 5 0RF No Action ondansetron 4 mg tablet,disintegrating 4 mg PO Q8H 3 Days Qty: 9 0RF doxycycline hyclate 100 mg tablet 100 mg PO BID 7 Days Qty: 14 0RF praziquantel 600 mg tablet 1,800 mg PO ONCE 1 Days Qty: 3 0RF ketoconazole 2 % shampoo 1 appl topical 3XW Qty: 120 0RF Lice Treatment (permethrin) 1 % liquid 30 ml topical ONCE Qty: 118 0RF Rx Instructions: Apply to clean and damp hair, rinse after 10 minutes. Repeat in 9 days. doxycycline hyclate 100 mg tablet 100 mg PO BID 7 Days Qty: 14 0RF Pataday Once Daily Relief 0.7 % drops 1 drp ophthalmic (eye) DAILY PRN (Reason: itching) Qty: 5 0RF cetirizine 10 mg tablet 10 mg PO DAILY PRN (Reason: allergy symptoms) Qty: 30 0RF prednisone 20 mg tablet 60 mg PO DAILY 5 Days Qty: 15 0RF fluticasone propionate [24 Hour Allergy Relief] 50 mcg/actuation spray,suspension 2 spray intranasal DAILY Qty: 16 0RF Rx Instructions: administer into each nostril permethrin 5 % cream 1 appl topical Q14D Qty: 60 0RF Rx Instructions: apply second treatment 14 days after first treatment if live lice remain ivermectin 3 mg tablet 12 mg PO ONCE Qty: 4 0RF Referrals: Teofilo Bermudez [Physician] - 1 week Interventions: ED Discharge Assessment Last Done: 01/06/23 21:11 Discharge Date/Time: 01/06/23 21:13
[2023-01-06] MEDS: Fluorescein Sodium STRIP 1 STRIP EYE-RIGHT (20:18)
[2023-01-06 20:25] VITALS: BP 144/90; PULSE 80; RESP 14; TEMP 36.5; O2SAT 100
[2023-01-06] MEDS: Tobramycin Sulfate 0.3% Sol Op 5 ML BTL 2 DROP EYE-RIGHT (20:29)
[2023-01-06] MEDS: Acetaminophen 325 MG TABLET 650 MG PO (20:29)
--- NOTE | 2023-01-06 20:31 | PC.NURSE ---
MD at bedside. Medicated as ordered. Pt tolerated well. Continues to report right eye pain, 10/10.
--- NOTE | 2023-01-06 21:09 | PC.NURSE ---
Pt reports increased right eye pain, 10/10. MD made aware and at the bedside.
== END 2023-01-06 21:13 | disposition home or self-care (01) ==
PROVIDERS: Emergency Provider Internal Medicine
DX: S05.01XA Injury of conjunctiva and corneal abrasion without foreign body, right eye, initial encounter (principal); X58.XXXA Exposure to other specified factors, initial encounter; Y93.9 Activity, unspecified; Y92.9 Unspecified place or not applicable; Y99.9 Unspecified external cause status
CPT/HCPCS: 99283; 99284

== ENCOUNTER 2023-01-20 00:03 | Emergency (ER) | payer MEDICARE, MEDICAID, SELFPAY ==
[2023-01-20 00:11] VITALS: BP 166/106; PULSE 100; RESP 14; TEMP 36.2; O2SAT 98; BMI 22.6
--- NOTE | 2023-01-20 00:28 | ED.GENADULT ---
HPI - General Adult General Chief complaint: Skin/Abscess/Foreign Body Stated complaint: Head problem? Time Seen by Provider: 01/20/23 00:28 Source: patient Mode of arrival: ambulatory Limitations: no limitations History of Present Illness HPI narrative: This is a 47-year-old female history of psychiatric disorders presenting to the emergency department with complaints of feeling like there are parasites all over her body this has been going on for the past year. Worse to her scalp she says she sees them moving and crawling. Patient wearing a bouffant for protection. Was seen by pcp and given ivermectin w/o relief. Followed by a psychiatrist. Hallucinating and seeing these bugs all over but mainly on her scalp. Denies drugs, alcohol, tobacco. No other complaints at this time. Related Data Previous Rx's Medication Instructions Recorded cetirizine 10 mg tablet 10 mg PO DAILY PRN allergy 08/09/22 symptoms #30 tabs fluticasone propionate 50 2 spray intranasal DAILY #16 grams 08/09/22 mcg/actuation nasal spray,suspension (24 Hour Allergy Relief) olopatadine 0.7 % eye drops 1 drp ophthalmic (eye) DAILY PRN 08/09/22 (Pataday Once Daily Relief) itching #5 mL prednisone 20 mg tablet 60 mg (3 x 20 mg) PO DAILY 5 days 08/09/22 #15 tabs doxycycline hyclate 100 mg tablet 100 mg PO BID 7 days #14 tabs 08/25/22 ondansetron 4 mg disintegrating 4 mg PO Q8H 3 days #9 tabs 08/25/22 tablet praziquantel 600 mg tablet 1,800 mg (3 x 600 mg) PO ONCE 1 08/25/22 day #3 tabs doxycycline hyclate 100 mg tablet 100 mg PO BID 7 days #14 tabs 12/11/22 ketoconazole 2 % shampoo 1 appl topical 3XW #120 mL 12/11/22 permethrin 1 % topical liquid 30 ml topical ONCE #118 mL 12/11/22 (Lice Treatment (permethrin)) ivermectin 3 mg tablet 12 mg (4 x 3 mg) PO ONCE 1 dose #4 12/30/22 tabs permethrin 5 % topical cream 1 appl topical Q14D 2 doses #60 12/30/22 grams ketorolac 0.5 % eye drops (Acular) 1 drp ophthalmic (eye) QID 1 week 01/06/23 #5 mL tobramycin 0.3 % eye drops 2 drp ophthalmic-Left Q4H #5 mL 01/06/23 Allergies Allergy/AdvReac Type Severity Reaction Status Date / Time No Known Allergies Allergy Verified 12/29/22 23:45 [No Known Allergies*] Review of Systems Review of Systems: Constitutional : No Weight loss, No Fever, No Chills, No Fatigue, No Malaise ENT/Mouth : No sore throat, No Rhinorrhea Eyes: No Eye Pain, No Swelling, No Redness Cardiovascular : No Chest Pain, No SOB, No Dyspnea on Exertion, No Orthopnea, No Edema, No Palpitations Respiratory : No Cough, No Sputum, No Wheezing Gastrointestinal : No Nausea, No Vomiting, No Diarrhea, No Constipation, No abdominal Pain, No Hematochezia, No Melena Genitourinary : No Dysuria, No Urinary Frequency, No Hematuria, Musculoskeletal : No joint pain, No Myalgias, No Joint Swelling Skin : No Skin Lesions, No rash, + sensaation of bugs crawling on skin Neuro : No Weakness, No Numbness, No Dizziness, No Headache Psych : No Anxiety/Panic, No Depression All other systems reviewed and are negative Yes all other systems are reviewed and are negative [facility] Past Medical History Attestation statement: The following information was validated with the patient. Source: old records reviewed and nursing notes reviewed Social History Social History Advance Directives: No Advance Directives Information Provided: Yes Physical Exam ED Vital Signs: Vital Signs - 24 hr 01/20/23 00:11 Temperature 97.1 F Pulse Rate 100 Respiratory Rate 14 Blood Pressure 166/106 H Pulse Oximetry 98 Oxygen Delivery Method Room Air BMI result Body Mass Index 22.6 HTN likely due to anxiety Appearance: Alert.? Oriented X3.? No acute distress.? Head: Normocephalic, atraumatic, no step-offs or deformities. + dryness to scalp w/ excoriations unable to visualize mites or lice. Eyes: Pupils equal, round and reactive to light.? Neck: Normal inspection.? Neck supple.? CVS: Normal heart rate and rhythm.? Pulses normal.? Respiratory: No respiratory distress.? Breath sounds normal.? Abdomen: Soft and nontender.? Skin: Skin warm and dry.? Normal skin color.? Normal skin turgor.? Extremities: No lower extremity edema.? No calf ttp. 5/5 strength to bilateral upper and lower extremities Neuro: Oriented X 3.? No motor deficit.? No sensory deficit. CN 2-12 intact Course Reevaluation(s) Reevaluation #1: Offered patient to see the care team she is agreeable. Time: 00:35 Reevaluation #2: Patient now states she would like to leave and she wants to follow up with her psychiatrist. Refusing labs. No indication for Section 12 at this time alert and oriented x4. Ambulatory with steady gait. Not suicidal or homicidal, not harm to self or others. She tells me her head very itchy and she will return if it worsens. Will give her Atarax for itchiness. Educated patient on diagnosis and treatment plan, answered all question, patient verbalizes understanding. At this time patient will be discharged home, advised to return with new or worsening symptoms. Educated on worrisome signs and symptoms and when to return. At this time I feel comfortable discharge home. Time: 00:47 Medical Decision Making Medical Decision Making [facility] Narrative: [address]32 39-year-old female presents with sensation other parasites crawling all over her body this is been going on for year. Physical examination dryness to scalp w/ excoriations unable to visualize mites or lice. Concerns for formication vs anxiety vs hallucinations versus improving lice versus psoriasis versus acute psychosis. Unlikely metabolic derangements. On exam there are no signs of parasites. No lesions lumps, masses. No signs of and necrosis or necrotizing infection. Plan reassurance. Will have patient evaluated by care team Differential Diagnosis Differential Diagnoses: The differential diagnosis associated with the presentation includes Concerns for formication vs anxiety vs hallucinations versus improving lice versus psoriasis versus acute psychosis. Unlikely metabolic derangements. On exam there are no signs of parasites. No lesions lumps, masses. No signs of and necrosis or necrotizing infection. Admission/Observation Consideration of admission/observation: Escalation of care including admission/observation considered Unlikely Lab Data [facility] Lab Attestation statement: I reviewed the patient's lab results. Social Determinants Patient?s care significantly limited by Social Determinants of Health including: Inadequate housing, Low income, Alcoholism and drug addiction in family, Problems related to primary support group, Problems related to employment and Other Social Determinant of Health Critical Care Time Critical Care Time Critical Care Time: No Discharge Plan Discharge Clinical Impression: Psychogenic formication, Anxiety Patient Disposition: Still a Patient Prescriptions: No Action ondansetron 4 mg tablet,disintegrating 4 mg PO Q8H 3 Days Qty: 9 0RF doxycycline hyclate 100 mg tablet 100 mg PO BID 7 Days Qty: 14 0RF praziquantel 600 mg tablet 1,800 mg PO ONCE 1 Days Qty: 3 0RF ketoconazole 2 % shampoo 1 appl topical 3XW Qty: 120 0RF Lice Treatment (permethrin) 1 % liquid 30 ml topical ONCE Qty: 118 0RF Rx Instructions: Apply to clean and damp hair, rinse after 10 minutes. Repeat in 9 days. doxycycline hyclate 100 mg tablet 100 mg PO BID 7 Days Qty: 14 0RF Pataday Once Daily Relief 0.7 % drops 1 drp ophthalmic (eye) DAILY PRN (Reason: itching) Qty: 5 0RF cetirizine 10 mg tablet 10 mg PO DAILY PRN (Reason: allergy symptoms) Qty: 30 0RF prednisone 20 mg tablet 60 mg PO DAILY 5 Days Qty: 15 0RF fluticasone propionate [24 Hour Allergy Relief] 50 mcg/actuation spray,suspension 2 spray intranasal DAILY Qty: 16 0RF Rx Instructions: administer into each nostril permethrin 5 % cream 1 appl topical Q14D Qty: 60 0RF Rx Instructions: apply second treatment 14 days after first treatment if live lice remain ivermectin 3 mg tablet 12 mg PO ONCE Qty: 4 0RF ketorolac [Acular] 0.5 % drops 1 drp ophthalmic (eye) QID 7 Days Qty: 5 0RF tobramycin 0.3 % drops 2 drp ophthalmic-Left Q4H Qty: 5 0RF
--- NOTE | 2023-01-20 00:47 | PC.NURSE ---
zoya pa to bedside for primary eval. after zoya left room pt getting dressed to leave. pt refused to talk to this RN. zoya roca aware.
== END 2023-01-20 00:58 | disposition home or self-care (01) ==
PROVIDERS: Emergency Provider Emergency Medicine
DX: F45.8 Other somatoform disorders (principal); F41.9 Anxiety disorder, unspecified; Z79.899 Other long term (current) drug therapy
CPT/HCPCS: 99282